=== PATIENT | female | born 1970 | race Caucasian/White ===

== ENCOUNTER → 2017-07-11 | Outpatient (CLI) | payer OTHER | LOC: CIMAGING 12:17 | PROVIDERS: ATTEND Family Medicine | DX: M25.531 Pain in right wrist (principal); Z87.81 Personal history of (healed) traumatic fracture | CPT/HCPCS: 73110-PO ==

== ENCOUNTER → 2017-08-15 | Outpatient (CLI) | payer OTHER | LOC: CIMAGING 15:07 | PROVIDERS: ATTEND Family Medicine | DX: M79.632 Pain in left forearm (principal) | CPT/HCPCS: 73090-PO ==

== ENCOUNTER → 2017-08-28 | Outpatient (CLI) | payer OTHER | LOC: CIMAGING 15:00 | PROVIDERS: ATTEND Family Medicine | DX: M54.2 Cervicalgia (principal); M54.9 Dorsalgia, unspecified; W20.8XXA Other cause of strike by thrown, projected or falling object, initial encounter | CPT/HCPCS: 72040-PO ==

== ENCOUNTER → 2017-12-19 | Outpatient (CLI) | payer OTHER | LOC: FIMAGING 11:33 | PROVIDERS: ATTEND Family Medicine | DX: S56.591A Other injury of other extensor muscle, fascia and tendon at forearm level, right arm, initial encounter (principal); M77.10 Lateral epicondylitis, unspecified elbow ==

== ENCOUNTER → 2017-12-26 | Outpatient (CLI) | payer OTHER | LOC: FIMAGING 14:01 | PROVIDERS: ATTEND Orthopaedic Surgery Hand Surgery | DX: M25.521 Pain in right elbow (principal) ==

== ENCOUNTER → 2018-01-29 | Outpatient (CLI) | payer OTHER | LOC: CIMAGING 16:16 | PROVIDERS: ATTEND Orthopaedic Surgery Hand Surgery | DX: Z01.818 Encounter for other preprocedural examination (principal); M43.8X2 Other specified deforming dorsopathies, cervical region; M25.522 Pain in left elbow | CPT/HCPCS: 71046-PO; 72040-PO ==

== ENCOUNTER → 2018-04-17 | Outpatient (CLI) | payer OTHER | LOC: CIMAGING 15:13 | PROVIDERS: ATTEND Family Medicine | DX: M54.2 Cervicalgia (principal); E03.9 Hypothyroidism, unspecified; R73.03 Prediabetes | CPT/HCPCS: 72050-PO ==